=== PATIENT | female | born 1980 | race Caucasian/White ===

== ENCOUNTER 2023-02-22 16:12 | Emergency (ER) | payer BC, MEDICAID, SELFPAY ==
--- NOTE | ~2023-02-22 | XR_ITS ---
EXAMINATION: XR CHEST CLINICAL INFORMATION: Cough COMPARISON: None available. TECHNIQUE: 2 views of the chest were obtained. FINDINGS: No focal consolidation. No pneumothorax. Trachea is midline. Cardiac mediastinal silhouette is not enlarged. No large pleural effusion. Osseous structures are intact. Soft tissues are unremarkable. XR/XR chest 2V IMPRESSION: No acute cardiopulmonary process.
[2023-02-22 16:57] VITALS: BP 142/87; PULSE 85; RESP 18; TEMP 36.4; O2SAT 99; BMI 32.1
--- NOTE | 2023-02-22 16:58 | ED_ITS ---
HPI - General Adult General Chief complaint: Upper Respiratory Symptoms Stated complaint: difficulty breathing Time Seen by Provider: 02/22/23 20:59 Source: patient Mode of arrival: ambulatory Limitations: no limitations History of Present Illness HPI narrative: 42 yo female with history of asthma, IDDM presents to the ER with complaints of nonproductive cough and sore throat for the last 2 weeks unrelieved with home inhalers. Patient denies any associated fevers, chills, shortness of breath, chest pain, leg swelling or leg pain. Patient reports that she uses Advair daily, albuterol p.r.n.. She denies any history of hospitalizations for asthma. She reports 1 month ago she moved here from [place]. She does not currently have a primary care doctor here and therefore she ran out of all of her diabetic medications including her insulin and she has not had this for more than a month. Patient also complaining of some left arm numbness and tingling which she has had the last 1 week. Related Data Previous Rx's Medication Instructions Recorded benzonatate 200 mg capsule 200 mg PO TID PRN cough #30 caps 02/22/23 blood sugar diagnostic (FreeStyle #100 ea 02/22/23 Lite Strips) blood-glucose meter (FreeStyle #1 ea 02/22/23 Lite Meter kit) insulin glargine 100 unit/mL (3 20 unit (0.2 mL) subcut BEDTIME 02/22/23 mL) subcutaneous pen (Lantus #15 mL Solostar U-100 Insulin) lancets 28 gauge (FreeStyle #100 ea 02/22/23 Lancets) Allergies Allergy/AdvReac Type Severity Reaction Status Date / Time propoxyphene Allergy Hives Verified 02/22/23 16:56 [From Rosa Maria] Review of Systems 2 Review of Systems: Yes all other systems are reviewed and are negative Constitutional: Constitutional: Reports no additional constitutional complaints, Denies body ache(s), Denies chills, Denies fever(s), Denies headache(s) and Denies weakness Eyes: Eyes: Reports no additional eye complaints and Denies change in vision ENT: Reports system reviewed and no additional complaints, except as documented, Denies dizziness, Denies headache(s), Denies nasal congestion, Denies nasal discharge, Denies neck pain and Reports sore throat Cardiovascular: Cardiovascular: Reports no additional cardiovascular complaints, Denies chest pain, Denies leg edema and Denies dyspnea Respiratory: Respiratory: Reports no additional respiratory complaints, Reports cough and Denies dyspnea Gastrointestinal: Gastrointestinal: Reports no additional gastrointestinal complaints, Denies abdominal pain, Denies diarrhea, Denies nausea and Denies vomiting Genitourinary: Genitourinary: Reports no additional female genitourinary complaints and Denies urinary incontinence Musculoskeletal: Musculoskeletal: Reports no additional musculoskeletal complaints, Denies back pain, Denies arthralgias, Denies joint swelling, Denies neck pain, Reports numbness and Denies tingling Integumentary/Breasts: Skin/Breast: Reports system reviewed and no additional complaints, except as docu and Denies rash Neurologic: Reports system reviewed and no additional complaints, except as documented, Denies Abnormal speech present, Denies dizziness, Denies headache(s), Reports numbness, Denies tingling and Denies weakness PMFSH Past Medical History Attestation statement: The following information was validated with the patient. Source: old records reviewed and nursing notes reviewed Onset Date is defined in the Problem List Problems that require an onset date and time if occurred within 24 hrs of arrival to the ED Aortic Dissection and Rupture; Neurologic impairment; Cardiopulmonary Arrest; Endotracheal Intubation; Insertion or Replacement of Mechanical Circulatory Assist Device Medical History (Updated 02/22/23 @ 22:19 by Ermelinda Cabrera NP) Diabetes Social History Social History Advance Directives: No Advance Directives Information Provided: No Physical Exam ED Vital Signs: Vital Signs - 24 hr 02/22/23 16:57 02/22/23 21:28 Temperature 97.6 F Pulse Rate 85 68 Respiratory Rate 18 16 Blood Pressure 142/87 H 143/87 H Pulse Oximetry 99 99 Oxygen Delivery Method Room Air Room Air BMI result Body Mass Index 32.1 Const General: cooperative, healthy appearing, comfortable and no acute distress Orientation/consciousness: patient oriented x3 Limitations: no limitations HENMT Head: Yes normal to inspection Ears: hearing grossly normal bilaterally and TM's normal bilaterally General nose exam: Normal external nose present Face and sinus: Yes normal facial exam Mouth: Normal oral and palatal mucosa present Throat: Yes posterior oropharynx normal, Yes tonsils normal and Yes uvula midline Eyes General: appearance normal, both eyes and all related structures Pupils: Equal, round and reactive pupils present Neck Neck: Yes normal visual inspection, Yes full ROM, Yes no lymphadenopathy and Yes no meningeal signs Chest Chest palpation & inspection: normal inspection of the chest Resp Effort & Inspection: normal respiratory effort Auscultation: clear to auscultation bilaterally Cardio Rate: regular rate Rhythm: regular rhythm Peripheral pulses: Peripheral pulses 2+ throughout GI Inspection: Yes normal to inspection Palpation (GI): Soft to palpation and nontender Auscultation: normal bowel sounds Back/Spine/Pelvis Thoracic/Lumbar Spine: thoracic and lumbar spine normal to inspection Skin General skin exam: no rashes or lesions noted Neuro General: patient oriented x3, moves all extremities, no meningeal signs, no focal motor deficits and normal sensation to monofilament Cranial nerves: Yes CN's II-XII intact bilaterally, Yes Equal, round and reactive pupils present, Yes Bilaterally intact EOM present, Yes Nystagmus not present, Yes Normal facial strength present and Yes Midline tongue present Cognition (Neuro): normal cognition Speech: No Abnormal speech present Gait exam (Neuro): Normal gait present Motor exam (neuro): 5/5 motor strength present throughout Sensory Exam: Normal double simultaneous stimulation for sensation Extrem General: Yes normal to inspection, Yes no pedal edema and Yes no calf tenderness Course Course Course Narrative: This is an RME: Additional HPI, ROS, PE not included below will be deferred to primary provider. This is a 54-rmie-hzq-female, with a hx of asthma, presenting to the ER with complaints of cough & SOB x 2.5 weeks. Lungs diminished, no wheezing. Boyfriend sick with similar symptoms. Dry cough heard on exam. Lungs diminished Plan: CXR, viral swabs Reevaluation(s) Reevaluation #1: Viral testing is negative. Chest x-ray shows no evidence of pneumonia. Patient requesting med refill for her Lantus and Humalog. Her blood sugars 233. She does not know her Humalog doses or her sliding scale. She is on 20 units nightly of Lantus and is on metformin. Therefore I will refill her Lantus and give her prescriptions for her glucometer, lancets and strips. Recommend she establish a primary care doctor here in [place] for further management of her chronic medical condition. Medical Decision Making Medical Decision Making [facility] Narrative: 42 yo female with history of asthma, IDDM presents to the ER with complaints of nonproductive cough and sore throat for the last 2 weeks unrelieved with home inhalers. Patient denies any associated fevers, chills, shortness of breath, chest pain, leg swelling or leg pain. Patient reports that she uses Advair daily, albuterol p.r.n.. She denies any history of hospitalizations for asthma. She reports 1 month ago she moved here from [place]. She does not currently have a primary care doctor here and therefore she ran out of all of her diabetic medications including her insulin and she has not had this for more than a month. Patient also complaining of some left arm numbness and tingling which she has had the last 1 week. LS CTA. Normal neuro exam. VSS Will obtain POC, labs, EKG, viral testing, CXR Differential Diagnosis Differential Diagnoses: The differential diagnosis associated with the presentation includes viral syndrome hyperglycemia low concern for pe/pna/acs, dissection, ICH vs CVA-with gradual onset of symptoms, no focal neurological symptoms, perc Admission/Observation Consideration of admission/observation: Escalation of care including admission/observation considered Mild hyperglycemia. Patient not in DKA requiring IV insulin and or admission Upper respiratory symptoms likely viral with no hypoxia or tachypnea with negative viral testing and chest x-ray with no need for admission Lab Data [facility] Lab Attestation statement: I reviewed the patient's lab results. Mild hyperglycemia with noted DKA 02/22/23 21:33 02/22/23 21:33 Labs: Lab Results 02/22/23 02/22/23 Range/Units 19:33 21:33 WBC 4.7 L (4.8-10.8) X10*3/uL RBC 4.33 (4.20-5.50) X10*6/uL Hgb 11.8 L (12.0-16.0) g/dl Hct 35.7 L (37.0-47.0) % MCV 82.4 (80.0-98.0) fL MCH 27.3 (27.0-33.0) pg MCHC 33.1 (31.0-35.0) g/dl RDW 13.8 (11.0-16.0) % Plt Count 117 L (160-400) X10*3/uL MPV 11.8 (9.4-12.3) fL Immature Gran % (Auto) 0.2 (0.0-0.4) % Neut % (Auto) 53.5 (45-73) % Lymph % (Auto) 36.6 (20-40) % [place] % (Auto) 6.6 (2-11) % Eos % (Auto) 2.5 (0-4) % Baso % (Auto) 0.6 (0-2) % Lymph # (Auto) 1.7 (1.2-4.9) X10*3/uL [place] # (Auto) 0.3 (0.1-1.2) X10*3/uL Eos # (Auto) 0.1 (0.0-0.4) X10*3/uL Baso # (Auto) 0.0 (0.0-0.2) X10*3/uL Abs Immat Gran (auto) 0.01 (0.00-0.03) X10*3/uL Absolute Neuts (auto) 2.5 (2.0-8.3) x10*3/uL Absolute Nucleated RBC 0.000 (0.0-0.012) X10*3/uL Nucleated RBC % (auto) 0.0 (0.0-0.2) /100WBC Sodium 138 (135-145) mmol/L Potassium 3.3 (3.3-5.1) mmol/L Chloride 104 (96-108) mmol/L Carbon Dioxide 25 (22-29) mmol/L Anion Gap 12 (12-20) BUN 9 (9-16) mg/dL Creatinine 0.71 (0.5-1.4) mg/dL Estim Creat Clear Calc 134.5 Estimated GFR > 60 Random Glucose 233 H (60-115) mg/dL Calcium 9.1 (8.4-10.2) mg/dL Troponin I High Sens < 2.7 (<3.5-17.0) ng/L Influenza Type A (PCR) NEGATIVE (Negative) Influenza Type B (PCR) NEGATIVE (Negative) RSV RNA Qual (PCR) NEGATIVE (Negative) SARS-CoV-2 RNA (RT-PCR) NEGATIVE (Negative) Independent Interpretation I performed an independent interpretation of an: EKG and Plain X-Ray Interpretation: I independently reviewed the chest x-ray and agree with the radiology report I independently reviewed the EKG which shows normal sinus rhythm with a rate of 60, normal MI, normal QRS, or QT Radiology Impression Discussion of test interpretation with radiology: I have reviewed the radiologist's reading. Radiologist Impression: [id number] [place] [address] XRay Report Signed Patient: Holly Cantu MR#: [id number] : 1980 Acct:[id number] Age/Sex: 42 / F ADM Date: 02/22/23 Loc: .ED Attending Dr: Ordering Physician: Fidelia Phillips Date of Service: 02/22/23 Procedure(s): XR chest 2V Accession Number(s): [id number] cc: Fidelia Phillips~ EXAMINATION: XR CHEST CLINICAL INFORMATION: Cough COMPARISON: None available. TECHNIQUE: 2 views of the chest were obtained. FINDINGS: No focal consolidation. No pneumothorax. Trachea is midline. Cardiac mediastinal silhouette is not enlarged. No large pleural effusion. Osseous structures are intact. Soft tissues are unremarkable. XR/XR chest 2V IMPRESSION: No acute cardiopulmonary process. Prescription Management I considered prescription management with: Antibiotic Chronic Conditions Patient?s care impacted by: Diabetes Discharge Plan Discharge Clinical Impression: Upper respiratory infection, Medication refill Patient Disposition: Home, Self-Care Instructions: Upper Respiratory Infection (ED), Medicine Refill (ED) Additional Instructions: Your blood sugar was 233. Please take your medications as prescribed We are prescribing your lantus as well as a prescription for your glucometer/lancets and strips. Please follow-up with a PCP for your humalog prescription. Your chest x-ray shows no signs of pneumonia. Your COVID testing was negative. Prescriptions: New insulin glargine [Lantus Solostar U-100 Insulin] 100 unit/mL (3 mL) insulin pen 20 unit subcut BEDTIME Qty: 15 0RF (DME) FreeStyle Lite Strips Strip See Rx Instructions .Route Qty: 100 0RF Rx Instructions: As directed (DME) blood-glucose meter [FreeStyle Lite Meter] Kit See Rx Instructions .Route Qty: 1 0RF Rx Instructions: As directed (DME) lancets [FreeStyle Lancets] 28 gauge misc See Rx Instructions .Route Qty: 100 0RF Rx Instructions: As directed benzonatate 200 mg capsule 200 mg PO TID PRN (Reason: cough) Qty: 30 0RF Referrals: Physician,Unknown J [Primary Care Provider] - 1 week
[2023-02-22 20:16] LABS: Influenza A PCR NEGATIVE (Negative); Influenza B PCR NEGATIVE (Negative); Resp Syncy Virus RNA Qual PCR NEGATIVE (Negative); SARS COV2 PCR INHOUSE NEGATIVE (Negative)
--- NOTE | 2023-02-22 21:12 | ECG_ITS ---
Test Reason : RIGHT SIDED NUMBNESS Blood Pressure : / mmHG Vent. Rate : 068 BPM Atrial Rate : 068 BPM P-R Int : 140 ms QRS Dur : 088 ms QT Int : 428 ms P-R-T Axes : 045 000 027 degrees QTc Int : 455 ms Normal sinus rhythm Normal ECG No previous ECGs available Referred By: Ermelinda Cabrera Electronically Signed By:Tee Glover
[2023-02-22 21:28] VITALS: BP 143/87; PULSE 68; RESP 16; O2SAT 99
[2023-02-22 21:41] LABS: MANUAL DIFF FLAG NO
[2023-02-22 21:44] LABS: Basophils Percent Auto 0.6 % (0-2); Eosinophils Absolute Auto 0.1 X10*3/uL (0.0-0.4); Eosinophils Percent Auto 2.5 % (0-4); Hematocrit 35.7 % (37.0-47.0); Hemoglobin 11.8 g/dl (12.0-16.0); Imm Gran Abs Auto 0.01 X10*3/uL (0.00-0.03); Imm Gran Pct Auto 0.2 % (0.0-0.4); Lymphocytes Absolute Auto 1.7 X10*3/uL (1.2-4.9); Lymphocytes Percent Auto 36.6 % (20-40); Mean Corpuscular HGB Conc 33.1 g/dl (31.0-35.0); Mean Corpuscular Hemoglobin 27.3 pg (27.0-33.0); Mean Corpuscular Volume 82.4 fL (80.0-98.0); Mean Platelet Volume 11.8 fL (9.4-12.3); Monocytes Absolute Auto 0.3 X10*3/uL (0.1-1.2); Monocytes Percent Auto 6.6 % (2-11); Neutrophils Absolute Auto 2.5 x10*3/uL (2.0-8.3); Neutrophils Percent Auto 53.5 % (45-73); Platelet Count 117 X10*3/uL (160-400); Red Blood Count 4.33 X10*6/uL (4.20-5.50); Red Cell Distribution Width 13.8 % (11.0-16.0); White Blood Count 4.7 X10*3/uL (4.8-10.8)
[2023-02-22 22:01] LABS: Anion Gap 12 (12-20); Blood Urea Nitrogen 9 mg/dL (9-16); Calcium 9.1 mg/dL (8.4-10.2); Carbon Dioxide 25 mmol/L (22-29); Chloride 104 mmol/L (96-108); Glucose Random 233 mg/dL (60-115); Potassium 3.3 mmol/L (3.3-5.1); Sodium 138 mmol/L (135-145)
[2023-02-22 22:08] LABS: Troponin-I High Sensitivity < 2.7 ng/L (<3.5-17.0)
[2023-02-22 22:22] LABS: Creatinine Clr Calc Pharmacy 134.5; Estimated Glomerular Filt Rate > 60
--- NOTE | 2023-02-22 22:38 | PC.NURSE ---
reviewed discharge instructions with pt. pt verbalized understanding, no sign of distress
== END 2023-02-22 22:39 | disposition home or self-care (01) ==
PROVIDERS: Nurse Practitioner Family; Physician Assistant Medical; Emergency Provider Emergency Medicine Emergency Medical Services
DX: J06.9 Acute upper respiratory infection, unspecified (principal); R05.9 Cough, unspecified; Z20.822 Contact with and (suspected) exposure to COVID-19; Z20.828 Contact with and (suspected) exposure to other viral communicable diseases; E11.9 Type 2 diabetes mellitus without complications; Z76.0 Encounter for issue of repeat prescription; Z79.4 Long term (current) use of insulin; R06.02 Shortness of breath
CPT/HCPCS: 0241U; 36415; 71046; 80048; 84484; 85025; 93005; 99283; 99285

== ENCOUNTER → 2023-02-22 21:12 | Outpatient (BNV) | payer BC, MEDICAID, SELFPAY | PROVIDERS: Emergency Provider Emergency Medicine Emergency Medical Services; Visit Provider Internal Medicine Cardiovascular Disease | DX: R06.02 Shortness of breath (principal); R20.2 Paresthesia of skin | CPT/HCPCS: 93010 ==

== ENCOUNTER 2023-03-17 12:47 | Emergency (ER) | payer BC, MEDICAID, SELFPAY ==
--- NOTE | ~2023-03-17 | XR_ITS ---
EXAMINATION: XR CHEST CLINICAL INFORMATION: Cough and shortness of breath. COMPARISON: 02/22/2023 TECHNIQUE: 2 views of the chest were obtained. FINDINGS: The lungs are well expanded. No focal consolidation. No pleural effusion. Cardiac silhouette is within normal limits. Surgical clips project over the right upper quadrant. XR/XR chest 2V IMPRESSION: No acute abnormality.
[2023-03-17 13:48] VITALS: BP 124/87; PULSE 102; RESP 20; TEMP 37.1; O2SAT 97; BMI 36.3
--- NOTE | 2023-03-17 13:50 | ED.GENADULT ---
HPI - General Adult General Chief complaint: General Medical Stated complaint: headache vomiting Time Seen by Provider: 03/17/23 19:22 Source: patient and family Mode of arrival: ambulatory Limitations: no limitations History of Present Illness HPI narrative: 42 yo female with PMH of asthma, DM vaccinated against flu here with c/o cough headaches nausea vomiting body aches x 5 days. She notes she is not feeling well and BS were in 400s. She came in for evaluation MD complaint: viral syndrome Onset (ago): day(s) (5) Location: head, mouth, chest and abdomen Radiation: non-radiation Severity: moderate Quality: aching Pain Consistency: constant Relieving factors: none Exacerbating factors: none Associated symptoms: denies other symptoms Treatments prior to arrival: none Related Data Previous Rx's Medication Instructions Recorded albuterol sulfate 90 mcg/actuation 2 inh inhalation Q4H PRN shortness 02/22/23 breath activated powder inhaler of breath or wheezing #1 ea benzonatate 200 mg capsule 200 mg PO TID PRN cough #30 caps 02/22/23 blood sugar diagnostic (FreeStyle #100 ea 02/22/23 Lite Strips) blood-glucose meter (FreeStyle #1 ea 02/22/23 Lite Meter kit) insulin glargine 100 unit/mL (3 20 unit (0.2 mL) subcut BEDTIME 02/22/23 mL) subcutaneous pen (Lantus #15 mL Solostar U-100 Insulin) lancets 28 gauge (FreeStyle #100 ea 02/22/23 Lancets) dextromethorphan polistirex 30 5 ml PO Q12H PRN cough #89 mL 03/17/23 mg/5 mL oral susp ext.release 12hr (Robitussin ER) ondansetron 4 mg disintegrating 4 mg PO Q8H PRN nausea and 03/17/23 tablet vomiting #20 tabs Allergies Allergy/AdvReac Type Severity Reaction Status Date / Time propoxyphene Allergy Hives Verified 03/17/23 13:54 [From Rosa Maria] Review of Systems Review of Systems: Constitutional : pos Fever, pos Chills, pos Fatigue ENT/Mouth :pos sore throat, pos Rhinorrhea Eyes: No Eye Pain, No Swelling, No Redness Cardiovascular : No Chest Pain, No SOB, No Dyspnea on Exertion Respiratory : pos Cough, No Sputum Gastrointestinal : pos Nausea, pos Vomiting, No Diarrhea, No abdominal Pain Genitourinary : No Dysuria, No Urinary Frequency, No Hematuria, Musculoskeletal : No joint pain, pos Myalgias, No Joint Swelling Skin : No Skin Lesions, No rash Neuro : No Weakness, No Numbness, No Dizziness, positive Headache Psych : No Anxiety/Panic, No Depression All other systems reviewed and are negative [facility] Past Medical History Attestation statement: The following information was validated with the patient. Source: old records reviewed Medical History Diabetes Social History Social History (Updated 03/17/23 @ 20:16 by Christin Nickerson DO) Patient Tobacco Use Status: Tobacco use Unknown Physical Exam ED Vital Signs: Vital Signs - 24 hr 03/17/23 13:48 03/17/23 17:32 03/17/23 19:17 Temperature 98.8 F 97.9 F 98.8 F Pulse Rate 102 H 97 98 Respiratory Rate 20 20 18 Blood Pressure 124/87 142/96 H 131/87 Pulse Oximetry 97 97 98 Oxygen Delivery Method Room Air Room Air Room Air 03/17/23 19:49 Temperature Pulse Rate 96 Respiratory Rate 18 Blood Pressure Pulse Oximetry Oxygen Delivery Method BMI result Body Mass Index 36.3 Appearance: Alert. Oriented X3. No acute distress. Eyes: Pupils equal, round and reactive to light. ENT: Pharynx normal. no exudates MMM no erythema Neck: Normal inspection. Neck supple. CVS: Normal heart rate and rhythm. Pulses normal. Respiratory: No respiratory distress. Breath sounds mildly diminished Abdomen: Soft and non-tender. Skin: Skin warm and dry. Normal skin color. Normal skin turgor. Extremities: No lower extremity edema. No calf ttp Neuro: Oriented X 3. No motor deficit. No sensory deficit. Course Course Course Narrative: This is an RME: Additional HPI, ROS, PE not included below will be deferred to primary provider. This is a 41-tajb-bgw-female, asthma, IDDM on humalog and lantus, presenting to the emergency department with complaints of shortness of breath, increased inhaler use. Also endorsing nausea and vomiting. Sugars have been in the 400s. No AP, no urinary frequency. Lungs are diminished throughout, poor respiratory effort. Vital signs stable. Plan: Labs, CXR, UA, POC Medications Administered Discontinued Medications Generic Name Dose Route Start Last Admin Trade Name Marlon PRN Reason Stop Dose Admin Acetaminophen 975 mg 03/17/23 19:32 03/17/23 19:59 Acetaminophen 325 Mg Tablet PO 03/17/23 19:33 975 mg ONCE ONE Administration Albuterol Sulfate 2.5 mg/ 0 mg 03/17/23 19:43 03/17/23 19:47 Albuterol/Ipratropium 3 ml INHALE 03/17/23 19:44 5 dose ONCE ONE Administration Guaifenesin/Codeine Phosphate 5 ml 03/17/23 19:32 03/17/23 19:59 Guaifen/Codeine Sf 200/20/10ml 10 Ml Liquid PO 03/17/23 19:33 5 ml ONCE ONE Administration Ondansetron HCl 4 mg 03/17/23 19:32 03/17/23 19:59 Ondansetron Odt 4 Mg Tab.Rapdis TRANSLINGU 03/17/23 19:33 4 mg ONCE ONE Administration Medical Decision Making Medical Decision Making [facility] Narrative: 42 yo female with asthma and DM here with 5 days of viral like illness at this time not toxic no hypoxia will obtain basic labs, blood glucose level, flu and COVID along with CXR to rule out pneumonia - neb ordered along with supportive medications. She is vaccinated. Differential Diagnosis Differential Diagnoses: The differential diagnosis associated with the presentation includes bronchitis, covid, flu Admission/Observation Consideration of admission/observation: Escalation of care including admission/observation considered VS stable, able to tolerate pills Lab Data [facility] Lab Attestation statement: I reviewed the patient's lab results. 03/17/23 14:15 03/17/23 14:15 Labs: Lab Results 03/17/23 03/17/23 03/17/23 Range/Units 14:15 14:20 19:30 WBC 3.0 L (4.8-10.8) X10*3/uL RBC 4.73 (4.20-5.50) X10*6/uL Hgb 13.1 (12.0-16.0) g/dl Hct 39.3 (37.0-47.0) % MCV 83.1 (80.0-98.0) fL MCH 27.7 (27.0-33.0) pg MCHC 33.3 (31.0-35.0) g/dl RDW 13.5 (11.0-16.0) % Plt Count 132 L (160-400) X10*3/uL MPV 11.9 (9.4-12.3) fL Immature Gran % (Auto) 0.3 (0.0-0.4) % Neut % (Auto) 57.7 (45-73) % Lymph % (Auto) 28.1 (20-40) % [place] % (Auto) 11.9 H (2-11) % Eos % (Auto) 1.3 (0-4) % Baso % (Auto) 0.7 (0-2) % Lymph # (Auto) 0.9 L (1.2-4.9) X10*3/uL [place] # (Auto) 0.4 (0.1-1.2) X10*3/uL Eos # (Auto) 0.0 (0.0-0.4) X10*3/uL Baso # (Auto) 0.0 (0.0-0.2) X10*3/uL Abs Immat Gran (auto) 0.01 (0.00-0.03) X10*3/uL Absolute Neuts (auto) 1.7 L (2.0-8.3) x10*3/uL Absolute Nucleated RBC 0.000 (0.0-0.012) X10*3/uL Nucleated RBC % (auto) 0.0 (0.0-0.2) /100WBC VBG pH 7.41 (7.32-7.43) VBG pCO2 39 mmHg VBG pO2 50 mmHg VBG HCO3 25 (22-26) mmol/L VBG O2 Saturation 80.0 % VBG Base Excess 1.1 mmol/L Sodium 136 (135-145) mmol/L Potassium 3.8 (3.3-5.1) mmol/L Chloride 105 (96-108) mmol/L Carbon Dioxide 24 (22-29) mmol/L Anion Gap 11 L (12-20) BUN 5 L (9-16) mg/dL Creatinine 1.10 (0.5-1.4) mg/dL Estim Creat Clear Calc 89.6 Estimated GFR 55 POC Glucose 236 H (60-115) mg/dL Random Glucose 344 H (60-115) mg/dL Calcium 9.2 (8.4-10.2) mg/dL Magnesium 1.7 (1.6-2.6) mg/dL Total Bilirubin 0.4 (0.0-1.0) mg/dL Direct Bilirubin 0.2 (0.0-0.5) mg/dL AST 52 H (5-31) U/L ALT 60 H (0-31) U/L Alkaline Phosphatase 86 (39-117) U/L Total Protein 7.7 (6.5-8.0) g/dL Albumin 3.6 (3.5-5.0) g/dL Lipase 29 (8-78) U/L Beta-Hydroxybutyrate 0.05 (0.02-0.27) mmol/L COVID-19 (ANJELICA) Negative (Negative) COVID-19 Clin Com See Note Influenza Type A (SISI) Positive A (Negative) Influenza Type B (SISI) Negative (Negative) Influenza A & B Note See Note Independent Interpretation I performed an independent interpretation of an: Plain X-Ray (no pneumonia) Radiology Impression Discussion of test interpretation with radiology: I have reviewed the radiologist's reading. Independent Historian Clinical information obtained from an independent historian. History obtained from or confirmed by: Spouse Prescription Management I considered prescription management with: Antiviral (out of window for tamiflu) and Other Chronic Conditions Patient?s care impacted by: Diabetes (held prednisone so sig wheezing) Discharge Plan Discharge Clinical Impression: Influenza A Patient Disposition: Home, Self-Care Instructions: Influenza (ED) Additional Instructions: return for worsening breathing, pain, inability to eat or drink, fainting or any other concerns. continue to use your inhaler. would expect you to be better in a couple of days. Regrese si empeora la respiraci?n, dolor, incapacidad para comer o beber, desmayos o cualquier otra inquietud. contin?e usando hunter inhalador Prescriptions: New ondansetron 4 mg tablet,disintegrating 4 mg PO Q8H PRN (Reason: nausea and vomiting) Qty: 20 0RF dextromethorphan polistirex [Robitussin ER] 30 mg/5 mL suspension,extended rel 12 hr 5 ml PO Q12H PRN (Reason: cough) Qty: 89 0RF No Action insulin glargine [Lantus Solostar U-100 Insulin] 100 unit/mL (3 mL) insulin pen 20 unit subcut BEDTIME Qty: 15 0RF (DME) FreeStyle Lite Strips Strip See Rx Instructions .Route Qty: 100 0RF Rx Instructions: As directed (DME) blood-glucose meter [FreeStyle Lite Meter] Kit See Rx Instructions .Route Qty: 1 0RF Rx Instructions: As directed (DME) lancets [FreeStyle Lancets] 28 gauge misc See Rx Instructions .Route Qty: 100 0RF Rx Instructions: As directed benzonatate 200 mg capsule 200 mg PO TID PRN (Reason: cough) Qty: 30 0RF albuterol sulfate 90 mcg/actuation aerosol powdr breath activated 2 inh inhalation Q4H PRN (Reason: shortness of breath or wheezing) Qty: 1 0RF Print Language: Turkish
[2023-03-17 14:20] LABS: MANUAL DIFF FLAG NO
[2023-03-17 14:21] LABS: Basophils Percent Auto 0.7 % (0-2); Eosinophils Percent Auto 1.3 % (0-4); Hematocrit 39.3 % (37.0-47.0); Hemoglobin 13.1 g/dl (12.0-16.0); Imm Gran Abs Auto 0.01 X10*3/uL (0.00-0.03); Imm Gran Pct Auto 0.3 % (0.0-0.4); Lymphocytes Absolute Auto 0.9 X10*3/uL (1.2-4.9); Lymphocytes Percent Auto 28.1 % (20-40); Mean Corpuscular HGB Conc 33.3 g/dl (31.0-35.0); Mean Corpuscular Hemoglobin 27.7 pg (27.0-33.0); Mean Corpuscular Volume 83.1 fL (80.0-98.0); Mean Platelet Volume 11.9 fL (9.4-12.3); Monocytes Absolute Auto 0.4 X10*3/uL (0.1-1.2); Monocytes Percent Auto 11.9 % (2-11); Neutrophils Absolute Auto 1.7 x10*3/uL (2.0-8.3); Neutrophils Percent Auto 57.7 % (45-73); Platelet Count 132 X10*3/uL (160-400); Red Blood Count 4.73 X10*6/uL (4.20-5.50); Red Cell Distribution Width 13.5 % (11.0-16.0)
[2023-03-17 14:30] LABS: VBG Base Excess 1.1 mmol/L; VBG HCO3 25 mmol/L (22-26); VBG pCO2 39 mmHg; VBG pH 7.41 (7.32-7.43); VBG pO2 50 mmHg
[2023-03-17 14:31] LABS: Venous Blood Gas Refer to POC result
[2023-03-17 14:39] LABS: Alanine Aminotransferase 60 U/L (0-31); Albumin Level 3.6 g/dL (3.5-5.0); Alkaline Phosphatase 86 U/L (39-117); Anion Gap 11 (12-20); Aspartate Amino Transferase 52 U/L (5-31); Beta-Hydroxybutyrate 0.05 mmol/L (0.02-0.27); Bilirubin Direct 0.2 mg/dL (0.0-0.5); Bilirubin Total 0.4 mg/dL (0.0-1.0); Blood Urea Nitrogen 5 mg/dL (9-16); Calcium 9.2 mg/dL (8.4-10.2); Carbon Dioxide 24 mmol/L (22-29); Chloride 105 mmol/L (96-108); Creatinine Clr Calc Pharmacy 89.6; Estimated Glomerular Filt Rate 55; Glucose Random 344 mg/dL (60-115); Lipase 29 U/L (8-78); Magnesium 1.7 mg/dL (1.6-2.6); Potassium 3.8 mmol/L (3.3-5.1); Sodium 136 mmol/L (135-145); Total Protein 7.7 g/dL (6.5-8.0)
[2023-03-17 14:41] LABS: COVID-19 Test Negative (Negative); IDNOW Serial# 08D9AD1C; IDNOW Serial# 152EDE1D; Influenza A Positive (Negative); Influenza B2 Negative (Negative)
[2023-03-17 17:32] VITALS: BP 142/96; PULSE 97; RESP 20; TEMP 36.6; O2SAT 97
[2023-03-17 19:17] VITALS: BP 131/87; PULSE 98; RESP 18; TEMP 37.1; O2SAT 98
[2023-03-17] MEDS: Albuterol Sulfate 2.5 MG, Albuterol/Iprat 2.5/0.5MG 3 ML 3 ML INHALE (19:47)
[2023-03-17 19:49] VITALS: PULSE 96; RESP 18; O2SAT 98
[2023-03-17 19:55] LABS: Glucose, Whole Blood 236 mg/dL (60-115)
[2023-03-17] MEDS: Ondansetron ODT 4 MG TAB.RAPDIS TRANSLINGU (19:59)
[2023-03-17] MEDS: guaiFEN/Codeine SF 200/20/10ML 10 ML LIQUID 5 ML PO (19:59)
[2023-03-17] MEDS: Acetaminophen 325 MG TABLET 975 MG PO (19:59)
== END 2023-03-17 20:18 | disposition home or self-care (01) ==
PROVIDERS: Physician Assistant Medical; Emergency Provider Emergency Medicine
DX: J10.1 Influenza due to other identified influenza virus with other respiratory manifestations (principal); R51.9 Headache, unspecified; R06.02 Shortness of breath; R11.2 Nausea with vomiting, unspecified; R05.9 Cough, unspecified; M79.10 Myalgia, unspecified site; Z79.899 Other long term (current) drug therapy; Z11.52 Encounter for screening for COVID-19
CPT/HCPCS: 71046; 80048; 80076; 82010; 82803; 82947; 83690; 83735; 85025; 87502; 87635; 94640; 99284